=== PATIENT | male | born 1955 | race Caucasian/White ===

== ENCOUNTER → 2020-01-29 10:07 | Outpatient (BNVA) | payer MEDICARE, SELFPAY | PROVIDERS: PCP Nurse Practitioner Family; Referring Provider Licensed Practical Nurse; Visit Provider Anesthesiology Pain Medicine | DX: M54.9 Dorsalgia, unspecified (principal); M51.17 Intervertebral disc disorders with radiculopathy, lumbosacral region; M50.020 Cervical disc disorder with myelopathy, mid-cervical region, unspecified level; Z79.891 Long term (current) use of opiate analgesic | CPT/HCPCS: 99214; 99215 ==

== ENCOUNTER → 2020-02-03 13:58 | Outpatient (BNVA) | payer MEDICARE, SELFPAY | PROVIDERS: PCP Pediatrics; Referring Provider Licensed Practical Nurse; Visit Provider Psychiatry & Neurology Neurology | DX: M54.2 Cervicalgia (principal); M79.601 Pain in right arm; M79.602 Pain in left arm | CPT/HCPCS: 95886; 95910 ==

== ENCOUNTER → 2020-02-24 08:16 | Outpatient (BNVA) | payer MEDICARE, SELFPAY | PROVIDERS: PCP Pediatrics; Visit Provider Psychiatry & Neurology Psychiatry | DX: F33.9 Major depressive disorder, recurrent, unspecified (principal); F06.30 Mood disorder due to known physiological condition, unspecified; G31.84 Mild cognitive impairment of uncertain or unknown etiology; G47.01 Insomnia due to medical condition; E63.9 Nutritional deficiency, unspecified; F17.200 Nicotine dependence, unspecified, uncomplicated | CPT/HCPCS: 90832; 99204 ==

== ENCOUNTER → 2020-03-29 14:17 | Outpatient (BNVA) | payer MEDICARE, SELFPAY | PROVIDERS: PCP Internal Medicine; Visit Provider Anesthesiology Pain Medicine | DX: M51.17 Intervertebral disc disorders with radiculopathy, lumbosacral region (principal); M54.9 Dorsalgia, unspecified; M50.020 Cervical disc disorder with myelopathy, mid-cervical region, unspecified level; F17.210 Nicotine dependence, cigarettes, uncomplicated | CPT/HCPCS: 99213 ==

== ENCOUNTER → 2020-04-22 08:07 | Outpatient (BNVA) | payer MEDICARE, SELFPAY | PROVIDERS: PCP Internal Medicine; Visit Provider Nurse Practitioner | DX: F33.9 Major depressive disorder, recurrent, unspecified (principal); F43.12 Post-traumatic stress disorder, chronic | CPT/HCPCS: 99204 ==

== ENCOUNTER → 2020-06-27 09:39 | Outpatient (BNVA) | payer MEDICARE, SELFPAY | PROVIDERS: PCP Internal Medicine; Visit Provider Nurse Practitioner | DX: F33.9 Major depressive disorder, recurrent, unspecified (principal) | CPT/HCPCS: 99213 ==

== ENCOUNTER → 2020-07-01 08:54 | Outpatient (BNVA) | payer SELFPAY | PROVIDERS: PCP Internal Medicine; Visit Provider Internal Medicine | DX: Z12.11 Encounter for screening for malignant neoplasm of colon (principal) | CPT/HCPCS: 87635 ==

== ENCOUNTER → 2020-07-21 13:52 | Outpatient (BNVA) | payer OTHER, SELFPAY | PROVIDERS: PCP Internal Medicine; Visit Provider Surgery | DX: Z20.828 Contact with and (suspected) exposure to other viral communicable diseases (principal) | CPT/HCPCS: 87635 ==

== ENCOUNTER 2020-07-26 08:09 | Day surgery (SDC) | payer MEDICARE, SELFPAY ==
[2020-07-25 11:33] VITALS: BMI 35.4
--- NOTE | 2020-07-26 08:37 | W.PM.OPSFHP ---
Same Day Surgery H&P Indication for Procedure/HPI DATE OF PROCEDURE: July 26, 2020 CHIEF COMPLAINT/INDICATIONFOR SURGICAL PROCEDURE: Screening colonoscopy PREOP DIAGNOSIS: screen PLANNED PROCEDRUE: Operation Date: 07/26/20 09:30 Proposed Procedures p Colonoscopy 65459 Z12.11(Not Applicable) - Devin Villalba MD Medications/Allergies* Home Medications Medication Instructions Recorded Confirmed Type atorvastatin 40 mg tablet 40 mg PO DAILY 12/08/19 07/25/20 History fenofibrate 54 mg tablet 54 mg PO DAILY 12/08/19 07/25/20 History gabapentin 600 mg tablet 600 mg PO TID 12/08/19 07/25/20 History ibuprofen 800 mg tablet 800 mg PO BID PRN tab 12/08/19 07/25/20 History lisinopril 10 1 tab PO DAILY 12/08/19 07/25/20 History mg-hydrochlorothiazide 12.5 mg tablet metoprolol tartrate 100 mg tablet 100 mg PO DAILY 12/08/19 07/25/20 History tizanidine 4 mg capsule 4 mg PO TID PRN 12/08/19 07/25/20 History diphenhydramine HCl 50 mg PO BEDTIME 07/25/20 07/25/20 History metformin 500 mg PO BID 07/25/20 07/25/20 History tramadol 50 mg PO BID 07/25/20 07/25/20 History venlafaxine 150 mg PO DAILY 07/25/20 07/25/20 History zolpidem 5 mg PO BEDTIME 07/25/20 07/25/20 History Allergies/Adverse Reactions Allergy/AdvReac Type Severity Reaction Status Date / Time No Known Allergies Allergy Verified 06/24/20 14:00 Pertinent History/Comorbid Conditions* Medical History (Updated 02/24/20 @ 16:28 by Marichuy Bryan MD) Cervical disc disorder with myelopathy of mid-cervical region Intervertebral disc disorders with radiculopathy, lumbosacral region Nicotine dependence Surgical History (Updated 01/08/20 @ 13:41 by Sondra Garcia APRN) History of hernia surgery 2x History of tonsillectomy Family History (Updated 01/06/20 @ 15:02 by Manuela Perry LPN) Diabetes Social History Smoking and tobacco status: current every day smoker cigarettes Packs smoked per day: 1 Alcohol intake: current Alcohol intake frequency: holidays/special occasions only Household members: spouse Marital status: Current occupational status: disabled History of recent travel: No Current gender identity: Male Pertinent Exam Findings alert, oriented x 3 and procedure specific exam findings Recommendations Surgery/Procedure today Coding Level of Care Code Acute Data Analytics Architect for Milagros Mello
[2020-07-26 08:38] VITALS: BP 134/96; PULSE 79; RESP 18; TEMP 36.3; O2SAT 98
[2020-07-26] MEDS: sodium chloride 0.9% 1,000 ML 30 ML IV (08:52)
[2020-07-26 08:55] LABS: Glucose Point of Care 133 mg/dL (70-110)
--- NOTE | 2020-07-26 09:18 | ANES.PREANE2 ---
Pre-Anesthetic Assessment Pre-Anesthetic Assessment: Height/Weight: Height 1.75 m Weight 108.862 kg Temp Pulse Resp BP Pulse Ox 97.4 F L 79 18 134/96 98 07/26/20 08:38 07/26/20 08:38 07/26/20 08:38 07/26/20 08:38 07/26/20 08:38 Preop Diagnosis: screen Proposed Procedure: Operation Date: 07/26/20 09:30 Proposed Procedures p Colonoscopy 04431 Z12.11(Not Applicable) - Devin Villalba MD Familial anesthetic complications: No trouble with Was Beta Raghu taken within 24 hours: Yes Last intake: Intake Last Liquid Date 07/25/20 Last Liquid Time 23:00 Last Solid Date 07/24/20 Last Solid Time 18:00 Social: Social History: Tobacco Exam: Pre-Anes Outpt Exam: alert, oriented x 3, clear to auscultation bilaterally and regular rate & rhythm Airway: Cervical ROM: WNL MP: 1 Dentition: Chipped CV/HEM: CV/HEM: HTN Metabolic: Metabolic: Hyperlipidemia Neuropsych: Comments: cognitive impairment Anesthetic Plan: ASA status: 2 Anesthesia: MAC Risk of > 500 ml blood loss (7ml/kg in children): No Other Pertinent Information: poor historian Meds/Allergies Current Medications: Current Medications Generic Name Dose Route Start Last Admin Trade Name Freq PRN Reason Stop Dose Admin Sodium Chloride 1,000 mls @ 30 ml s/hr 07/26/20 08:30 07/26/20 08:52 Sodium Chloride 0.9% IV 07/27/20 08:29 30 mls/hr .Q24H YASH Administration PFSH Anesthesia PFSH: Medical History Cervical disc disorder with myelopathy of mid-cervical region Intervertebral disc disorders with radiculopathy, lumbosacral region Nicotine dependence Surgical History History of hernia surgery 2x History of tonsillectomy Family History Other Diabetes Social History Smoking and tobacco status: current every day smoker cigarettes Packs smoked per day: 1 Alcohol intake: current Alcohol intake frequency: holidays/special occasions only Household members: spouse Marital status: Current occupational status: disabled History of recent travel: No Current gender identity: Male Data Anesthesia Other Labs: Laboratory Results - last 48 hr 07/26/20 08:51 POC Glucose 133 Cardiac Studies: No Data to Display
[2020-07-26 09:52] VITALS: BP 128/90; PULSE 66; RESP 18; TEMP 36.4; O2SAT 96
--- NOTE | 2020-07-26 09:55 | ANE.PACU2 ---
Inpatient post-anesthesia follow up: Airway intact: Yes Vital signs: Temperature 97.5 F Pulse Rate 66 Respiratory Rate 18 Blood Pressure 128/90 Pulse Oximetry 96 Oxygen Delivery Me thod Nasal Cannula Oxygen Flow Rate 3 Fraction of Inspir ed Oxygen Hydration adequate: Yes Nausea and vomiting: No Mental status: Baseline
== END 2020-07-26 10:30 | disposition home or self-care (01) ==
PROVIDERS: PCP Internal Medicine; Visit Provider Surgery
PROC: 0DJD8ZZ Inspection of Lower Intestinal Tract, Via Natural or Artificial Opening Endoscopic (ICD-10-PCS; CPT 45378; principal; 2020-07-26 09:30)
DX: Z12.11 Encounter for screening for malignant neoplasm of colon (principal); K57.30 Diverticulosis of large intestine without perforation or abscess without bleeding; D12.5 Benign neoplasm of sigmoid colon; K64.8 Other hemorrhoids; I10 Essential (primary) hypertension; E78.5 Hyperlipidemia, unspecified; F17.210 Nicotine dependence, cigarettes, uncomplicated
CPT/HCPCS: 12345; 36416; 45385; 82962; 88305; J7030

== ENCOUNTER → 2020-10-14 09:03 | Outpatient (BNVA) | payer MEDICARE, SELFPAY | PROVIDERS: PCP Internal Medicine; Visit Provider Nurse Practitioner | DX: F33.9 Major depressive disorder, recurrent, unspecified (principal) | CPT/HCPCS: 99214 ==

== ENCOUNTER → 2021-02-17 12:42 | Outpatient (BNVA) | payer MEDICARE, SELFPAY | PROVIDERS: PCP Internal Medicine; Visit Provider Nurse Practitioner | DX: F33.9 Major depressive disorder, recurrent, unspecified (principal) | CPT/HCPCS: 99214 ==

== ENCOUNTER 2021-07-22 16:29 | Emergency (ER) | payer MEDICARE, SELFPAY ==
[2021-07-22] VITALS (7 sets, daily range): BP systolic 71–119; BP diastolic 47–69; PULSE 52–58; RESP 16–17; TEMP 36.6; O2SAT 95–98; BMI 27.4
--- NOTE | 2021-07-22 16:36 | XRR_ITS ---
PROCEDURE INFORMATION: Exam: XR Right Tibia and Fibula Exam date and time: 07/22/2021 4:36 PM Age: 66 years old Clinical indication: Injury or trauma; Fall; Blunt trauma; Lower leg; Right; Additional info: Fall/hematoma TECHNIQUE: Imaging protocol: XR Right tibia and fibula. Views: 2 views. COMPARISON: No relevant prior studies available. FINDINGS: Bones/joints: Small osteophytes at multiple compartments in the right knee. There is a fabella in the soft tissues posterior to the knee. No acute fracture. No dislocation. Normal bone mineralization. No joint effusion. Joint spaces are maintained. Soft tissues: No soft tissue swelling. No radiopaque foreign body. XR/XR tibia fibula RT 2V [id number] IMPRESSION: 1. No acute fracture. Followup imaging recommended in 7-14 days if clinical concern for fracture persists. 2. Incidental/nonacute findings are listed in the report.
--- NOTE | 2021-07-22 16:36 | XRR_ITS ---
PROCEDURE INFORMATION: Exam: XR Right Knee Exam date and time: 07/22/2021 4:36 PM Age: 66 years old Clinical indication: Injury or trauma; Fall; Blunt trauma; Knee; Right TECHNIQUE: Imaging protocol: XR Right knee. Views: 3 views. COMPARISON: No relevant prior studies available. FINDINGS: Bones/joints: No acute fracture. No dislocation. Normal bone mineralization. No joint effusion. Joint spaces are maintained. Small osteophytes at the patella, medial tibial plateau, and tibial spines. There is a fabella in the soft tissues posterior to the knee. Soft tissues: No soft tissue swelling. No radiopaque foreign body. XR/XR knee RT 3V* [id number] IMPRESSION: 1. No acute fracture. Followup imaging recommended in 7-14 days if clinical concern for fracture persists. 2. Incidental/nonacute findings are listed in the report.
--- NOTE | 2021-07-22 16:36 | XRR_ITS ---
PROCEDURE INFORMATION: Exam: XR Left Knee Exam date and time: 07/22/2021 4:36 PM Age: 66 years old Clinical indication: Injury or trauma; Fall; Blunt trauma; Knee; Left TECHNIQUE: Imaging protocol: XR Left knee. Views: 3 views. COMPARISON: No relevant prior studies available. FINDINGS: Bones/joints: No acute fracture. No dislocation. Normal bone mineralization. No joint effusion. Joint spaces are maintained. There is a fabella in the soft tissues posterior to the knee. Soft tissues: No soft tissue swelling. No radiopaque foreign body. XR/XR knee LT 3V* [id number] IMPRESSION: No acute fracture. Followup imaging recommended in 7-14 days if clinical concern for fracture persists.
--- NOTE | 2021-07-22 16:36 | XRR_ITS ---
PROCEDURE INFORMATION: Exam: XR Chest Exam date and time: 07/22/2021 4:36 PM Age: 66 years old Clinical indication: Pain; Chest pressure; Additional info: Reduced breath sounds TECHNIQUE: Imaging protocol: XR of the chest. Views: 1 view. COMPARISON: CR Chest 1 [place] [id number] 04/06/2017 8:20 AM FINDINGS: Lungs: Lungs are clear bilaterally. Pleural spaces: No pleural effusion. No pneumothorax. Heart/Mediastinum: The cardiac silhouette and mediastinal contours are unremarkable. Bones/joints: Unremarkable for age. XR/XR chest 1V portable [id number] IMPRESSION: No acute cardiopulmonary process.
--- NOTE | 2021-07-22 16:39 | ECG_ITS ---
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 Measurements Intervals [place] Rate: 55 P: 43 PA: 194 QRS: 29 QRSD: 89 T: 56 QT: 441 QTc: 423 Interpretive Statements SINUS BRADYCARDIA Compared to ECG 04/06/2017 08:23:20 No significant changes Electronically Signed On 07-22-2021 20:57:07 CDT by Bj Giraldo M.D. [email or web address] [email or web address]/store/NU/[id number] f
--- NOTE | 2021-07-22 16:39 | W.ED.GENADLT ---
HPI - General Adult General: Chief complaint: Dizziness Stated complaint: HYPOTENSION Time Seen by Provider: 07/22/21 16:36 History of Present Illness: HPI narrative: The patient is a 66-year-old male with past medical history hypertension, diabetes, who comes to the ER complaining of multiple falls at home today. EMS arrived and documented multiple low blood pressures with systolic in the 70s and 80s. Started fluids and got it up to the 90s. He takes metoprolol and lisinopril/hydrochlorothiazide for his blood pressure. Of note he did get his second Covid shot 2 days ago. He says he is not feeling any effects from the shot and has been eating and drinking well. Denies diarrhea and vomiting as well. Blood pressure on arrival 71/48 and he is asymptomatic in bed. He says he gets lightheaded when he stands at home. Associated symptoms: Deny chest pain, confusion, dyspnea, headache(s), rash or palpitations Review of Systems General: Reports: 10 or more systems reviewed and unremarkable except in HPI and below Const: Denies: fatigue Eyes: Denies: change in vision, blurry vision or eye redness ENMT: Denies: throat pain, swelling of lips/tongue, ear or mastoid pain or nasal congestion Card: Denies: chest pain, palpitations, irregular heart rhythm, edema, dyspnea on exertion or orthopnea Resp: Denies: dyspnea, productive cough or non-productive cough GI: Denies: abdominal pain, diarrhea or GI cramping : Denies: flank pain, urinary frequency or urinary urgency Musc: Denies: neck pain, back pain, extremity pain, joint pain, joint redness, limited range of motion or muscle weakness Skin/Breast: Denies: rash, pruritus, erythema, skin pain or skin tenderness Neuro: Denies: headache(s), numbness in extremities, weakness in extremities, sensory changes, difficulty walking, dizziness, confusion or Slurred speech present Psych: Denies: anxiety or depression Endo: Denies: polyuria All/Imm: Denies: urticaria, throat swelling or tongue swelling PFSH ED PFSH: Medical History (Updated 07/22/21 @ 22:38 by Toni Cunha MD) Cervical disc disorder with myelopathy of mid-cervical region History of colon polyps Intervertebral disc disorders with radiculopathy, lumbosacral region Surgical History (Updated 07/26/20 @ 09:53 by Devin Villalba MD) History of colonoscopy with polypectomy (07/26/20) History of hernia surgery 2x History of tonsillectomy Family History Other Diabetes Social History Smoking and tobacco status: current every day smoker cigarettes Packs smoked per day: 1 Alcohol intake: current Alcohol intake frequency: holidays/special occasions only Household members: spouse Marital status: Current occupational status: disabled History of recent travel: No Current gender identity: Male Physical Exam Const: COMMON NORMALS: no acute distress, average body habitus, patient oriented x3, no limitations, healthy appearing, alert and well nourished GENERAL APPEARANCE: cooperative, comfortable, well kempt and well developed ORIENTATION/CONSCIOUSNESS: Yes awake, Yes oriented to person, Yes oriented to place and Yes oriented to time HENMT: COMMON NORMALS: normocephalic, external ears normal and Normal external nose present HEAD & SCALP: normal to inspection and normocephalic NOSE: Normal external nose present EXTERNAL EAR: Yes external ears normal MOUTH: Normal oral and palatal mucosa present THROAT: posterior oropharynx normal Eye: COMMON NORMALS: Equal, round and reactive pupils present and EOMs intact bilaterally GENERAL EYE: appearance normal, both eyes and all related structures PUPIL: Yes Equal, round and reactive pupils present Neck/C-Spine: COMMON NORMALS: full ROM, no lymphadenopathy, no meningeal signs and no JVD GENERAL: Yes normal visual inspection Lymph: LYMPHATIC: no lymphadenopathy noted Chest: COMMONS NORMALS: normal inspection of the chest and normal palpation of entire chest wall Resp: COMMON NORMALS: normal respiratory effort, No retractions, No use of accessory muscles, clear to auscultation bilaterally and percussion normal EFFORT & INSPECTION: Yes able to speak in complete sentences AUSCULTATION: clear to auscultation bilaterally PERCUSSION: percussion normal Cardio: COMMON NORMALS: no JVD, regular rate, regular rhythm, S1 normal heart sound present, S2 normal heart sound present and Peripheral pulses 2+ throughout RATE: regular rate RHYTHM: regular rhythm HEART SOUNDS: S1 normal heart sound present and S2 normal heart sound present PERIPHERAL PULSES: Peripheral pulses 2+ throughout GI: COMMON NORMALS: Normal to inspection, nondistended, normoactive bowel sounds present, Soft to palpation, non-tender and no masses INSPECTION: Yes normal to inspection PALPATION: Yes Soft to palpation : COMMON NORMALS: Yes no CVA tenderness BLADDER/KIDNEY EXAM: Yes no CVA tenderness Back/Pelvis: COMMON NORMALS: no CVA tenderness, thoracic and lumbar spine normal to inspection, no thoracic nor lumbar tenderness and thoraco-lumbar ROM normal Extremity: COMMON NORMALS: normal to inspection, full ROM, capillary refill normal, no joint enlargement and no pedal edema NARRATIVE EXTREMITY EXAM: Abrasions and contusions to bilateral knees. Right upper crespo proximal tibia there is a hematoma 3 x 5 cm in diameter. No significant bleeding at this time. He says he fell with right knee landing on the screen door track giving the hematoma. NV intact distal to injury. GENERAL: Yes normal exam except as noted Neuro: COMMON NORMALS: patient oriented x3, CN's II-XII intact bilaterally, moves all extremities, no focal motor deficits, no sensory deficits noted and gait normal SENSORIUM/ORIENTATION: Yes alert, Yes oriented to person, Yes oriented to place and Yes oriented to time MENINGEAL SIGNS: Yes no meningeal signs Psych: COMMON NORMALS: mental status grossly normal, Normal thought process present, cooperative, normal affect and speech normal APPEARANCE: Yes well kempt ATTITUDE: Yes calm SPEECH: Yes normal speech THOUGHT PROCESS: Normal thought process present Skin: COMMON NORMALS: no rashes or lesions noted GENERAL SKIN EXAM: no rashes or lesions noted Course Vital Signs: Vital signs: Vital Signs Temperature 97.8 F 07/22/21 16:34 Pulse Rate 52 L 07/22/21 20:39 Respiratory Rate 16 07/22/21 18:46 Blood Pressure 119/69 07/22/21 20:39 Pulse Oximetry 97 07/22/21 18:46 MDM - General Adult MDM Narrative: Medical decision making narrative: The patient came to the ER with significant hypotension. He had his Covid shot 2 days ago and has not been eating or drinking well since then he says. This mixed with his metoprolol and lisinopril/hydrochlorothiazide have likely caused his blood pressure to drop. He was given a liter of fluids by EMS and 1 more by us here in the ED. His blood pressure normalized and his symptoms completely resolved. Normal orthostatic vital signs after IV fluids. He is stable for discharge and requesting discharge. Recommended he follow-up with his primary care physician next week to discuss further, drink lots of fluids, and recheck sodium next week at primary doctor's office. Return to the ER at anytime with worsening symptoms. Also he will check his blood pressure a few times a day at home and write them down and bring that to his primary care physician as well as not take his blood pressure medicines if his blood pressure is low. Lab Data: Labs: Lab Results 07/22/21 07/22/21 07/22/21 16:05 16:05 16:05 WBC 8.1 10^3/uL 10^3/ uL (4.0-10.0) RBC 4.07 10^6/uL L 10 ^6/uL (4.1-5.3) Hgb 13.1 g/dL g/dL (11.7-16.6) Hct 38.2 % L % (42.0-52.0) MCV 93.9 fl fl (80-94) MCH 32.2 pg pg (28.0-34.0) MCHC 34.3 g/dL g/dL (30.0-36.0) RDW 12.7 % % (12.1-15.1) Plt Count 343 10^3/cmm 10^3 /cmm (130-400) MPV 8.8 fL fL (7.4-10.4) Neut % (Auto) 41.3 % % Lymph % (Auto) 42.2 % % Hendry % (Auto) 11.2 % % Eos % (Auto) 3.5 % % Baso % (Auto) 0.9 % % Neut # (Auto) 3.35 10^3/uL 10^3 /uL (1.8-7.7) Lymph # (Auto) 3.4 10^3/uL 10^3/ uL (0.8-4.8) Hendry # (Auto) 0.9 10^3/uL 10^3/ uL (0.2-0.9) Eos # (Auto) 0.3 10^3/uL 10^3/ uL (0.0-0.8) Baso # (Auto) 0.1 10^3/uL 10^3/ uL (0.0-0.1) Nucleated RBC % (a uto) 0 % % Nucleated RBCs # 0.0 /100WBC /100W BC Sodium 129 mmol/L L mmol /L (136-145) Potassium 4.4 mmol/L mmol/L (3.5-5.1) Chloride 96 mmol/L L mmol/ L (98-107) Carbon Dioxide 24 mmol/L mmol/L (22-29) Anion Gap 13.4 (5-19) BUN 7 mg/dL L mg/dL (8-23) Creatinine 0.9 mg/dL mg/dL (0.7-1.2) GFR Calculation 84.7 mL/min L mL/ min (90-130) Glucose 112 mg/dL mg/dL (65-115) Calculated Osmolal ity 267 mOsm/kg L mOs m/kg (285-295) Lactate Calcium 8.9 mg/dL mg/dL (8.5-10.5) Total Bilirubin 0.3 mg/dL mg/dL (0.15-1.2) AST 17 U/L U/L (0-40) ALT 19 U/L U/L (0-41) Alkaline Phosphata se 49 IU/L IU/L (40-130) Troponin T Baselin e 11 ng/L ng/L (0-15) Troponin T 120 Min [place] Troponin T Total Protein 6.1 g/dL L g/dL (6.6-8.7) Albumin 3.8 g/dL g/dL (3.5-5.2) Globulin 2.3 g/dL g/dL (1.3-4.6) TSH 3.08 uIU/mL uIU/m L (0.27-4.20) Urine Color Urine Appearance Urine pH Ur Specific Gravit y Urine Protein Urine Glucose (UA) Urine Ketones Urine Blood Urine Nitrate Urine Bilirubin Urine Urobilinogen Ur Leukocyte Sandie ase 07/22/21 07/22/21 07/22/21 18:18 18:18 19:12 WBC RBC Hgb Hct MCV MCH MCHC RDW Plt Count MPV Neut % (Auto) Lymph % (Auto) Hendry % (Auto) Eos % (Auto) Baso % (Auto) Neut # (Auto) Lymph # (Auto) Hendry # (Auto) Eos # (Auto) Baso # (Auto) Nucleated RBC % (a uto) Nucleated RBCs # Sodium Potassium Chloride Carbon Dioxide Anion Gap BUN Creatinine GFR Calculation Glucose Calculated Osmolal ity Lactate 1.3 mmol/L mmol/L (0.5-2.2) Calcium Total Bilirubin AST ALT Alkaline Phosphata se Troponin T Baselin e Troponin T 120 Min [place] 11.31 ng/L ng/L (0-15) Delta Troponin T 0.31 ABS# ABS# (0-10) Total Protein Albumin Globulin TSH Urine Color Yellow (Yellow) Urine Appearance Clear (CLEAR) Urine pH 7 (5-7) Ur Specific Gravit y 1.000 L (1.005-1.030) Urine Protein Neg (Negative) Urine Glucose (UA) Norm (Normal) Urine Ketones Negative (Negative) Urine Blood Neg (Negative) Urine Nitrate Negative (Negative) Urine Bilirubin Neg (Negative) Urine Urobilinogen Norm mg/dL mg/dL (Negative) Ur Leukocyte Sandie ase Negative (Negative) Discharge Plan Discharge Patient Disposition: Home Clinical Impression: Acute hypotension, Dehydration, Hyponatremia Condition: Stable Prescriptions: No Action gabapentin 600 mg tablet 600 mg PO TID RF: 0 ibuprofen 800 mg tablet 800 mg PO BID PRN (Reason: Pain) RF: 0 tizanidine 4 mg capsule 4 mg PO TID PRN (Reason: Spasms) RF: 0 atorvastatin 40 mg tablet 40 mg PO DAILY RF: 0 metoprolol tartrate 100 mg tablet 100 mg PO DAILY RF: 0 lisinopril-hydrochlorothiazide 10-12.5 mg tablet 1 tab PO DAILY RF: 0 fenofibrate 54 mg tablet 54 mg PO DAILY RF: 0 venlafaxine 150 mg capsule,extended release 24hr 150 mg PO DAILY Qty: 90 RF: 0 metformin 500 mg tablet 500 mg PO BID RF: 0 Ambien 5 mg tablet 5 mg PO BEDTIME RF: 0 Discharge Orders: Discharge ED (Routine); Ordered 07/22/21 Ordered By: Toni Cunha Referrals: Bee Esparza MD [Primary Care Provider] - Discharge Diet: Advance as tolerated Discharge Activity: Resume usual activity Patient Instructions: Dehydration (ED), Hypotension (ED), Opioid Safety Activity Restrictions/Additional Instructions: You have had an episode of lightheadedness likely caused by low blood pressure. This is possibly a side effect from being dehydrated related to getting your Covid second shot 2 days ago. We have given you IV fluids with improvement of your blood pressure and your lightheadedness has resolved. Please use your 's blood pressure cuff to check your blood pressure a few times each day and write it down. If it is low please do not take your blood pressure medications and call your doctor or return to the ER at anytime with worsening or worrisome symptoms. Coding Level of Care Code ED Contract Administration Manager for Milagros Fwd Exam Comprehensive
[2021-07-22 17:30] LABS: Basophils # 0.1 10^3/uL (0.0-0.1); Basophils % 0.9 %; Eosinophils # 0.3 10^3/uL (0.0-0.8); Eosinophils % 3.5 %; Hematocrit 38.2 % (42.0-52.0); Hemoglobin 13.1 g/dL (11.7-16.6); Lymphocytes # 3.4 10^3/uL (0.8-4.8); Lymphocytes % 42.2 %; Mean Corpuscular HGB Conc 34.3 g/dL (30.0-36.0); Mean Corpuscular Hemoglobin 32.2 pg (28.0-34.0); Mean Corpuscular Volume 93.9 fl (80-94); Mean Platelet Volume 8.8 fL (7.4-10.4); Monocytes # 0.9 10^3/uL (0.2-0.9); Monocytes % 11.2 %; Neutrophils # 3.35 10^3/uL (1.8-7.7); Neutrophils % 41.3 %; Nucleated Red Blood Cells % 0 %; Platelet Count 343 10^3/cmm (130-400); Red Blood Count 4.07 10^6/uL (4.1-5.3); Red Cell Distribution Width 12.7 % (12.1-15.1); White Blood Count 8.1 10^3/uL (4.0-10.0)
[2021-07-22 18:03] LABS: Troponin(5th) Baseline 11 ng/L (0-15)
[2021-07-22 18:10] LABS: Alanine Aminotransferase 19 U/L (0-41); Albumin Level 3.8 g/dL (3.5-5.2); Alkaline Phosphatase 49 IU/L (40-130); Anion Gap 13.4 (5-19); Aspartate Amino Transferase 17 U/L (0-40); Blood Urea Nitrogen 7 mg/dL (8-23); Calcium 8.9 mg/dL (8.5-10.5); Carbon Dioxide 24 mmol/L (22-29); Chloride 96 mmol/L (98-107); Globulin 2.3 g/dL (1.3-4.6); Glomerular Filtration Rate 84.7 mL/min (90-130); Glucose 112 mg/dL (65-115); Osmolality Calculated 267 mOsm/kg (285-295); Potassium 4.4 mmol/L (3.5-5.1); Sodium 129 mmol/L (136-145); Thyroid Stimulating Hormone 3.08 uIU/mL (0.27-4.20); Total Bilirubin 0.3 mg/dL (0.15-1.2); Total Protein 6.1 g/dL (6.6-8.7)
[2021-07-22 19:04] LABS: Troponin 5 2HR 11.31 ng/L (0-15); Troponin 5 2HR Delta 0.31 ABS# (0-10)
[2021-07-22 19:06] LABS: Lactate (Lactic Acid level) 1.3 mmol/L (0.5-2.2)
[2021-07-22] MEDS: sodium chloride 0.9% 1,000 ML 999 ML IV (19:19)
[2021-07-22 20:17] LABS: Add Urine Microscopic? NO; Charge for UA Resulting for Rev
[2021-07-22 20:20] LABS: Bilirubin Urine Neg (Negative); Blood Urine Neg (Negative); Glucose Urine UA Norm (Normal); Ketones Urine Negative (Negative); Leukocyte Esterase Urine Negative (Negative); Nitrate Urine Negative (Negative); Protein Urine Neg (Negative); Urine Appearance Clear (CLEAR); Urine Color Yellow (Yellow); Urobilinogen Urine Norm (Negative); pH Urine 7 (5-7)
--- NOTE | 2021-07-22 22:39 | ECG_ITS ---
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 Measurements Intervals [place] Rate: 50 P: 41 [place]: 148 QRS: 48 QRSD: 88 T: 64 QT: 446 QTc: 410 Interpretive Statements SINUS BRADYCARDIA Compared to ECG 07/22/2021 16:47:41 No significant changes Electronically Signed On 07-23-2021 21:50:03 CDT by Bj Giraldo M.D. [id number]
--- NOTE | 2021-07-26 11:29 | DCPLANNER ---
it infrastructure project manager had message to speak with patient about getting established with a primary care. it infrastructure project manager is unable to speak with patient at this time.
== END 2021-07-22 23:04 | disposition home or self-care (01) ==
PROVIDERS: Emergency Provider Family Medicine; PCP Internal Medicine
DX: I95.9 Hypotension, unspecified (principal); E86.0 Dehydration; E87.1 Hypo-osmolality and hyponatremia; Z79.84 Long term (current) use of oral hypoglycemic drugs; F17.210 Nicotine dependence, cigarettes, uncomplicated
CPT/HCPCS: 71045; 73562; 73590; 80053; 81003; 83605; 84443; 84484; 85025; 93005; 96360; 99283; J7030

== ENCOUNTER 2022-03-08 11:38 | Outpatient (CLI) | payer OTHER, SELFPAY ==
--- NOTE | 2022-03-08 12:03 | XR_ITS ---
WS: [id number] CHEST 2 VIEWS HISTORY: WEIGHT LOSS COMPARISON: None available. Lungs: Mild pulmonary hyperexpansion. No mass or nodule. No pneumonia. Normal vasculature. Cardiac size: Normal. Mediastinum/Aorta: Normal mediastinum. Bones: Normal. XR/XR chest 2V* [id number] IMPRESSION: Mild chronic emphysema.
== END 2022-03-08 11:39 | disposition home or self-care (01) ==
PROVIDERS: PCP Nurse Practitioner Family; Visit Provider Nurse Practitioner Family
DX: R63.4 Abnormal weight loss (principal); J43.9 Emphysema, unspecified
CPT/HCPCS: 71046

== ENCOUNTER 2022-04-03 14:08 | Outpatient (CLI) | payer MEDICARE, SELFPAY | END 2022-04-03 14:09 | disposition home or self-care (01) | PROVIDERS: PCP Nurse Practitioner Family; Visit Provider Urology | DX: R97.20 Elevated prostate specific antigen [PSA] (principal) | CPT/HCPCS: 51741; 51798; 81003; 84153; 99203 ==

== ENCOUNTER 2023-11-26 13:42 | Outpatient (CLI) | payer MEDICARE, SELFPAY ==
--- NOTE | 2023-11-26 13:51 | CT_ITS ---
WS: [id number] LDCT LUNG CANCER SCREENING HISTORY: NICOTINE DEPENDENCE,CIGARETTES TECHNIQUE: Axial imaging performed from the apices to 1 cm below the costophrenic angles. Coronal and sagittal reformats are submitted with axial MIP series. All CT scans at [facility] use at least one of these dose optimization techniques: automated exposure control; mA and/or kV adjustment per patient size (includes targeted exams where dose is matched to clinical indication); or iterativ e reconstruction. DLP: 71.81 mGy.cm DIvol: Mean CTDIvol: 1.30 (mGy) COMPARISON: None available. Diagnostic quality: Satisfactory Lungs: No pulmonary mass or nodule. There is a small amount of mucus RIGHT lateral trachea. Heart: Normal size heart with no pericardial effusion.. Other findings: Scattered coronary artery calcifications. Mild atherosclerosis aorta. Benign scattere d lymph nodes. Cholelithiasis. No adrenal mass. IMPRESSION: CT/CT lung screening [id number] LUNG-RADS: 1-Negative FOLLOW UP: 12 Month: Continue annual screening with LDCT OTHER FINDINGS (S MODIFIER): None.
== END 2023-11-26 13:43 | disposition home or self-care (01) ==
LOC: RAD 13:43
PROVIDERS: PCP Nurse Practitioner Family; Visit Provider Family Medicine
DX: Z12.2 Encounter for screening for malignant neoplasm of respiratory organs (principal); F17.210 Nicotine dependence, cigarettes, uncomplicated
CPT/HCPCS: 71271

== ENCOUNTER → 2023-11-27 13:48 | Outpatient (BNVA) | payer MEDICARE, SELFPAY | PROVIDERS: PCP Nurse Practitioner Family; Referring Provider Family Medicine; Visit Provider Surgery | DX: Z12.11 Encounter for screening for malignant neoplasm of colon (principal) | CPT/HCPCS: 99024; 99204 ==

== ENCOUNTER 2023-12-11 15:52 | Emergency (ER) | payer MEDICARE, SELFPAY ==
[2023-12-11] VITALS (21 sets, daily range): BP systolic 85–119; BP diastolic 59–89; PULSE 43–68; RESP 10–19; TEMP 36.3; O2SAT 90–100; BMI 28.1
--- NOTE | 2023-12-11 15:57 | XRR_ITS ---
PROCEDURE INFORMATION: Exam: XR Chest Exam date and time: 12/11/2023 4:06 PM Age: 68 years old Clinical indication: Other: Bradycardia TECHNIQUE: Imaging protocol: Radiologic exam of the chest. Views: 1 view. COMPARISON: CT lung screening [id number] 11/26/2023 2:38 PM FINDINGS: Lungs: No focal consolidation. Pleural spaces: No evidence of pneumothorax. No evidence of pleural effusion. Heart/Mediastinum: Cardiomediastinal silhouette is within normal limits. Bones/joints: No evidence of acute osseous abnormality. XR/XR chest 1V portable [id number] IMPRESSION: 1. No acute cardiopulmonary abnormality.
--- NOTE | 2023-12-11 15:59 | ECG_ITS ---
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 Measurements Intervals [place] Rate: 42 P: 28 MT: 184 QRS: 26 QRSD: 106 T: 38 QT: 473 QTc: 397 Interpretive Statements SINUS BRADYCARDIA Compared to ECG 12/11/2023 16:08:55 Ventricular premature complex(es) no longer present Electronically Signed On 12-12-2023 12:05:11 MEDIA INTERN by Bj Giraldo M.D. [id number]
--- NOTE | 2023-12-11 16:00 | W.ED.SYNCOPE ---
HPI - Syncope General: Chief Complaint: Syncope Stated Complaint: Syncope Time Seen by Provider: 12/11/23 15:55 History of Present Illness: Patient presents to the ER with complaints of 1 episode of syncope. When EMS arrived there he was bradycardic and hypotensive. Patient is on at least 2 blood pressure medicines. Patient denies any chest pain shortness of breath. Patient said he got lightheaded and dizzy. Patient has done this in the past he claims last time was about 4 years ago. Patient denies all complaints at this time. On arrival patient's heart rate was approximately 50 beats a minute and blood pressure 85/59. 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 Mother , at age 81 CAD (coronary artery disease) Other Diabetes Social History Smoking and tobacco/nicotine status: current every day tobacco/nicotine user cigarettes Packs smoked per day: 1 Alcohol intake: never Substance/Drug Use: never Household members: spouse Marital status: Current occupational status: disabled Current gender identity: Male Physical Exam Const: COMMON NORMALS: no acute distress, average body habitus, patient oriented x3, no limitations, healthy appearing, alert and well nourished HENMT: COMMON NORMALS: normocephalic, atraumatic, hearing grossly normal bilaterally, external ears normal, Normal external nose present, moist oral mucous membranes and oropharynx normal HEAD & SCALP: normocephalic and atraumatic NOSE: Normal external nose present EXTERNAL EAR: Yes external ears normal Neck/C-Spine: COMMON NORMALS: full ROM, no lymphadenopathy, supple, no meningeal signs, no JVD and Thyroid normal THYROID: Thyroid normal Chest: COMMONS NORMALS: normal inspection of the chest and normal palpation of entire chest wall Resp: COMMON NORMALS: normal respiratory effort, No retractions, No use of accessory muscles and clear to auscultation bilaterally AUSCULTATION: clear to auscultation bilaterally Cardio: COMMON NORMALS: no JVD, regular rhythm, S1 normal heart sound present, S2 normal heart sound present, No gallops present (Cardio), No murmurs present (Cardio) and No rub (Cardio); negative for regular rate (Mildly bradycardic) RATE: abnormal rate (Mildly bradycardic) RHYTHM: regular rhythm HEART SOUNDS: S1 normal heart sound present and S2 normal heart sound present GI: COMMON NORMALS: Normal to inspection, nondistended, normoactive bowel sounds present, Soft to palpation, non-tender, No hepatosplenomegaly present and no masses PALPATION: Yes Soft to palpation and Yes No hepatosplenomegaly present Neuro: COMMON NORMALS: patient oriented x3 SENSORIUM/ORIENTATION: Yes alert MENINGEAL SIGNS: Yes no meningeal signs Course Vital Signs: Vital signs: Vital Signs Temperature 97.4 F L 12/11/23 15:57 Pulse Rate 46 L 12/11/23 20:02 Respiratory Rate 18 12/11/23 20:02 Blood Pressure 119/66 12/11/23 20:02 Pulse Oximetry 100 12/11/23 20:02 Oxygen Delivery Me thod Room Air 12/11/23 16:37 MDM - Syncope Medical Decision Making Patient presented with bradycardia and hypotension. Lab work was obtained including serial EKGs serial enzymes and chest x-ray. All of which was benign except patient's BUN/creatinine was elevated. BUN was 10 and creatinine was 1.8. I feel this may be allowing the medication that the patient is on including lisinopril and metoprolol to stay in the system too long and therefore causes bradycardia and hypotension. We will decrease his metoprolol and have him follow-up with his PCP. Differential Diagnosis Unlikely syncope due to orthostatic hypotension, vasovagal syncope, complete atrioventricular block, subarachnoid hemorrhage, pulmonary embolism or dehydration Medical Records I reviewed the patient's medical records. Lab Data I reviewed the patient's lab results. 12/11/23 16:00 12/11/23 16:00 Radiology Impressions Chest X-Ray 12/11/23 15:57 IMPRESSION: 1. No acute cardiopulmonary abnormality. Laboratory Results WBC 5.13 10^3/uL (3.29-11.43) 12/11/23 16:00 RBC 4.33 10^6/uL (3.85-5.65) 12/11/23 16:00 Hgb 13.90 g/dL (11.27-16.99) 12/11/23 16:00 Hct 41.9 % (37-53) 12/11/23 16:00 MCV 96.8 fl (82-101) 12/11/23 16:00 MCH 32.1 pg (27-33) 12/11/23 16:00 MCHC 33.2 g/dL (30-55) 12/11/23 16:00 RDW 13.3 % (12.1-15.1) 12/11/23 16:00 Plt Count 220 10^3/cmm (157-399) 12/11/23 16:00 MPV 9.3 fL (7.4-10.4) 12/11/23 16:00 Neut % (Auto) 35.7 % 12/11/23 16:00 Lymph % (Auto) 48.5 % 12/11/23 16:00 [place] % (Auto) 11.1 % 12/11/23 16:00 Eos % (Auto) 3.3 % 12/11/23 16:00 Baso % (Auto) 1.0 % 12/11/23 16:00 Neut # (Auto) 1.83 10^3/uL (1.8-7.7) 12/11/23 16:00 Lymph # (Auto) 2.5 10^3/uL (0.8-4.8) 12/11/23 16:00 [place] # (Auto) 0.6 10^3/uL (0.2-0.9) 12/11/23 16:00 Eos # (Auto) 0.2 10^3/uL (0.0-0.8) 12/11/23 16:00 Baso # (Auto) 0.1 10^3/uL (0.0-0.1) 12/11/23 16:00 Nucleated RBC % (auto) 0 % 12/11/23 16:00 Nucleated RBCs # 0.0 /100WBC 12/11/23 16:00 Sodium 137 mmol/L (136-145) 12/11/23 16:00 Potassium 3.9 mmol/L (3.5-5.1) 12/11/23 16:00 Chloride 100 mmol/L (98-107) 12/11/23 16:00 Carbon Dioxide 24 mmol/L (22-29) 12/11/23 16:00 Anion Gap 16.9 (5-19) 12/11/23 16:00 BUN 10 mg/dL (8-23) 12/11/23 16:00 Creatinine 1.8 mg/dL (0.7-1.2) H 12/11/23 16:00 GFR Calculation 37.8 mL/min (90-130) L 12/11/23 16:00 Glucose 125 mg/dL (65-115) H 12/11/23 16:00 Calculated Osmolality 285 mOsm/kg (285-295) 12/11/23 16:00 Calcium 9.2 mg/dL (8.5-10.5) 12/11/23 16:00 Magnesium 1.9 mg/dL (1.7-2.3) 12/11/23 16:00 Total Bilirubin 0.3 mg/dL (0.15-1.2) 12/11/23 16:00 AST 19 U/L (0-40) 12/11/23 16:00 ALT 18 U/L (0-41) 12/11/23 16:00 Alkaline Phosphatase 43 U/L (40-130) 12/11/23 16:00 Troponin T Baseline 20 ng/L (0-15) H 12/11/23 16:00 Troponin T 120 Minute 14.62 ng/L (0-15) 12/11/23 18:26 Delta Troponin T -5.38 ABS# (0-10) L 12/11/23 18:26 Total Protein 6.8 g/dL (6.6-8.7) 12/11/23 16:00 Albumin 4.2 g/dL (3.5-5.2) 12/11/23 16:00 Globulin 2.6 g/dL (1.3-4.6) 12/11/23 16:00 TSH 1.41 uIU/mL (0.27-4.20) 12/11/23 16:00 Urine Color Yellow (Yellow) 12/11/23 19:24 Urine Appearance Clear (CLEAR) 12/11/23 19:24 Urine pH 5 (5-7) 12/11/23 19:24 Ur Specific [place] 1.010 (1.005-1.030) 12/11/23 19:24 Urine Protein Neg (Negative) 12/11/23 19:24 Urine Glucose (UA) Norm (Normal) 12/11/23 19:24 Urine Ketones Negative (Negative) 12/11/23 19:24 Urine Blood Neg (Negative) 12/11/23 19:24 Urine Nitrate Negative (Negative) 12/11/23 19:24 Urine Bilirubin Neg (Negative) 12/11/23 19:24 Urine Urobilinogen Norm mg/dL (Negative) 12/11/23 19:24 Ur Leukocyte Esterase Negative (Negative) 12/11/23 19:24 All radiology interpretation(s) finalized by discharge EKG Data EKG 1: I personally reviewed and interpreted this EKG as follows: EKG interpretation date: 12/11/23 EKG interpretation time: 16:08 Prior EKG tracings: available for review Interpretation: Ventricular rate 53 bpm, SD interval 178, QRS duration 106, QTc of 435, sinus bradycardia with occasional PVC EKG 2: I personally reviewed and interpreted this EKG as follows: EKG interpretation date: 12/11/23 EKG interpretation time: 18:04 Prior EKG tracings: available for review Interpretation: Ventricular rate 42 bpm, SD interval 184, QRS duration 106, QTc of 414, sinus bradycardia, Discharge Plan Discharge Patient Disposition: Home Clinical Impression: Drug-induced hypotension, Bradycardia, drug induced Condition: Stable Prescriptions: New metoprolol tartrate 50 mg tablet 50 mg PO DAILY Qty: 30 0RF Discontinued metoprolol tartrate 100 mg tablet 100 mg PO DAILY No Action gabapentin 600 mg tablet 600 mg PO TID ibuprofen 800 mg tablet 800 mg PO BID PRN (Reason: Pain) fenofibrate 54 mg tablet 54 mg PO DAILY lisinopril 20 mg tablet 20 mg PO DAILY tizanidine 4 mg tablet 4 mg PO TID PRN (Reason: Spasms) metformin 500 mg tablet 500 mg PO BID atorvastatin 20 mg tablet 20 mg PO DAILY Discharge Orders: Discharge ED (Routine); Ordered 12/11/23 Ordered By: Tyrell Ruiz Referrals: Dmitriy Farr NP [Primary Care Provider] - 1 week Patient Instructions: Hypotension (ED), Bradycardia (ED) Activity Restrictions/Additional Instructions: Your workup in ER showed your kidneys are functioning properly. They are functioning less than normal. This may be lowering your blood pressure medicine to build up in your system and therefore caused her heart rate and your blood pressure to go too low. Please decrease your metoprolol 100 mg to 50 mg 1 tablet daily. Please follow-up with your family practice physician within the next 7 days for further evaluation and treatment. Coding Level of Care Code ED Helicopter Pilot Instructor for Milagros Mello
[2023-12-11] MEDS: sodium chloride 0.9% 1,000 ML 999 ML IV ×2 (16:15→16:35)
[2023-12-11 16:19] LABS: Basophils # 0.1 10^3/uL (0.0-0.1); Eosinophils # 0.2 10^3/uL (0.0-0.8); Eosinophils % 3.3 %; Hematocrit 41.9 % (37-53); Lymphocytes # 2.5 10^3/uL (0.8-4.8); Lymphocytes % 48.5 %; Mean Corpuscular HGB Conc 33.2 g/dL (30-55); Mean Corpuscular Hemoglobin 32.1 pg (27-33); Mean Corpuscular Volume 96.8 fl (82-101); Mean Platelet Volume 9.3 fL (7.4-10.4); Monocytes # 0.6 10^3/uL (0.2-0.9); Monocytes % 11.1 %; Neutrophils # 1.83 10^3/uL (1.8-7.7); Neutrophils % 35.7 %; Nucleated Red Blood Cells % 0 %; Platelet Count 220 10^3/cmm (157-399); Red Blood Count 4.33 10^6/uL (3.85-5.65); Red Cell Distribution Width 13.3 % (12.1-15.1); White Blood Count 5.13 10^3/uL (3.29-11.43)
[2023-12-11 16:36] LABS: Troponin(5th) Baseline 20 ng/L (0-15)
[2023-12-11 16:56] LABS: Alanine Aminotransferase 18 U/L (0-41); Albumin Level 4.2 g/dL (3.5-5.2); Alkaline Phosphatase 43 U/L (40-130); Anion Gap 16.9 (5-19); Aspartate Amino Transferase 19 U/L (0-40); Blood Urea Nitrogen 10 mg/dL (8-23); Calcium 9.2 mg/dL (8.5-10.5); Carbon Dioxide 24 mmol/L (22-29); Chloride 100 mmol/L (98-107); Globulin 2.6 g/dL (1.3-4.6); Glomerular Filtration Rate 37.8 mL/min (90-130); Glucose 125 mg/dL (65-115); Magnesium 1.9 mg/dL (1.7-2.3); Osmolality Calculated 285 mOsm/kg (285-295); Potassium 3.9 mmol/L (3.5-5.1); Sodium 137 mmol/L (136-145); Thyroid Stimulating Hormone 1.41 uIU/mL (0.27-4.20); Total Bilirubin 0.3 mg/dL (0.15-1.2); Total Protein 6.8 g/dL (6.6-8.7)
--- NOTE | 2023-12-11 17:59 | ECG_ITS ---
[facility] Test Date: 2023-12-11 Pat Name: Kvng Soto Department: Room: Gender: Male Patient Companion: : 1955 Requested By: Tyrell Ruiz Order Number: [id number] Polina MD: Bj Giraldo M.D. Measurements Intervals [place] Rate: 53 P: 42 VT: 178 QRS: 22 QRSD: 106 T: 30 QT: 452 QTc: 427 Interpretive Statements SINUS BRADYCARDIA WITH OCCASIONAL VENTRICULAR PREMATURE COMPLEXES Compared to ECG 07/22/2021 21:54:35 Ventricular premature complex(es) now present Electronically Signed On 12-12-2023 12:06:09 QUALITY COORDINATOR by Bj Giraldo M.D. [id number]
[2023-12-11 18:59] LABS: Troponin 5 2HR 14.62 ng/L (0-15)
[2023-12-11 19:03] LABS: Troponin 5 2HR Delta -5.38 ABS# (0-10)
--- NOTE | 2023-12-11 19:14 | PC.NURSE ---
bladder scan shows 424ml, pt has attempted multiple times to urinate, has no urge
[2023-12-11 19:34] LABS: Add Urine Microscopic? NO; Charge for UA Resulting for Rev
[2023-12-11 19:46] LABS: Bilirubin Urine Neg (Negative); Blood Urine Neg (Negative); Glucose Urine UA Norm (Normal); Ketones Urine Negative (Negative); Leukocyte Esterase Urine Negative (Negative); Nitrate Urine Negative (Negative); Protein Urine Neg (Negative); Urine Appearance Clear (CLEAR); Urine Color Yellow (Yellow); Urobilinogen Urine Norm (Negative); pH Urine 5 (5-7)
== END 2023-12-11 20:04 | disposition home or self-care (01) ==
PROVIDERS: Emergency Provider Emergency Medicine; PCP Nurse Practitioner Family
DX: I95.2 Hypotension due to drugs (principal); T44.7X5A Adverse effect of beta-adrenoreceptor antagonists, initial encounter; R00.1 Bradycardia, unspecified; Z79.84 Long term (current) use of oral hypoglycemic drugs; F17.210 Nicotine dependence, cigarettes, uncomplicated
CPT/HCPCS: 36415; 71045; 80053; 81003; 83735; 84443; 84484; 85025; 93005; 96360; 96361; 99285; J7030

== ENCOUNTER 2025-05-12 15:41 | Emergency (ER) | payer MEDICARE, SELFPAY ==
[2025-05-12] VITALS (11 sets, daily range): BP systolic 81–154; BP diastolic 50–92; PULSE 54–65; RESP 12–17; TEMP 36.3; O2SAT 93–100; BMI 21.9
--- NOTE | 2025-05-12 15:44 | ECG_ITS ---
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 Measurements Intervals [place] Rate: 67 P: 52 MD: 180 QRS: 27 QRSD: 93 T: 41 QT: 398 QTc: 422 Interpretive Statements SINUS RHYTHM Compared to ECG 12/11/2023 18:04:10 Sinus bradycardia no longer present Electronically Signed On 05-12-2025 16:39:59 CDT by Dustin Cardoso M.D. [id number] [id number]
--- OUTSIDE RECORDS SUMMARY | 2025-05-12 15:48 | XMS_ITS | Encounter Summary ---
Author Organization [employer] Address 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
--- OUTSIDE RECORDS SUMMARY | 2025-05-12 15:48 | XMS_ITS | Encounter Summary ---
Author Organization [employer] Address 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
--- OUTSIDE RECORDS SUMMARY | 2025-05-12 15:48 | XMS_ITS | Encounter Summary ---
Author Organization [facility] Address 

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
--- OUTSIDE RECORDS SUMMARY | 2025-05-12 15:49 | XMS_ITS | Patient Health Record ---
Author Organization [facility] Address [address] [place], [place] [id number] Care Team Providers Care Aircraft Captain Name Role Phone Dmitriy Ariza Primary Care Provider Ángel Reese MD, Bernardo Unavailable [phone] Allergies Allergen (clinical drug ingredient) Drug/Non Drug Allergy documented on EMR Reaction Allergy Type Onset Date Status Hayfever, pollen (uncoded) Unknown Allergy Active Reason For Referral No Information Medications Medication SIG (Take, Route, Frequency, Duration) Notes Start Date End Date Status venlafaxine 150 mg 1 cap orally once a day Active atorvastatin 20 mg 1 tab orally once a day Active zolpidem 5 mg 1 tab orally at bedt erick, as needed for sleep Active tiZANidine 4 mg 1 tab po orally TID prn spasm Active calcipotriene topical 0.005% 1 amaury applied topically as directed Unknown gabapentin 600 mg 1 tab po orally TID Active fenofibrate 54 mg 1 tab once a day Active ibuprofen 800 mg 1 tab po orally BID prn pain; take with food Active hydrochlorothiazide-lisinop ril 12.5 mg-10 mg 1 tab once a day Active Metoprolol Tartrate 100 mg 1 tab once a day Active metFORMIN 500 mg 1 tab orally 2 times a day Active Social History Tobacco Use: Social History Observation Description Date Details (start date - stop date) Current Smoker 10/28/2008 - NA alcohol Question Answer Notes Did you have a drink contain ing alcohol in the past year? Yes Points 3 Interpretation Negative How often did you have a dri nk containing alcohol in the past year? Monthly or less (1 point) How many drinks did you have on a typical day when you were drinking in the past year? 1 or 2 (0 points) How often did you have six o r more drinks on one occasion in the past year? Monthly (2 points) Tobacco use: Question Answer Notes : current smoker Are you interested in quitting? Ready to quit How many cigarettes a day do you smoke? 11-20 How often do you smoke cigarettes? every day How soon after you wake up do you smoke your fir st cigarette? 6-30 min When did you start smoking? 10/28/2008 Problems Problem Type SNOMED Code ICD Code Onset Dates Problem Status W/U Status Risk Notes Problem Low back pain (164481172) Low back pain (M54.5) Active confirmed Problem Lumbosacral spondylosis without myelopathy (20811267) Spondylosis without myelopathy or radiculopathy, lumbar region (M47.816) Active confirmed Problem Anxiety disorder (768694229) Other specified anxiety disorders (F41.8) Active confirmed Problem Hypersomnia (44681398) Hypersomnia, unspecified (G47.10) Active confirmed Problem Sleep disorder (75597382) Other sleep disorders (G47.8) Active confirmed Problem Radiculopathy due to lumbar intervertebral disc disorder (095630114030264) Intervertebral disc disorders with radiculopathy, lumbar region (M51.16) Active confirmed Problem Long-term current use of drug therapy (266042129) Other chcf (current) drug therapy (Z79.899) Active confirmed Problem Myalgia (38039949) Myalgia of auxiliary muscles, head and neck (M79.12) Active confirmed Problem Muscle pain (95886170) Myalgia, other site (M79.18) Active confirmed Plan Of Treatment No Information Medical (General) History Medical History History ICD Code Intervertebral disc disorder with radicu lopathy of lumbosacral region Cervical disc disorder with myelopathy o f mid-cervical region Cervical stenosis of spine Diabetes mellitus Vertigo Hypertension Hyperlipidemia Surgical History Surgery Date(Month/Year) Tonsillectomy Hernia repair x 2, 1976, 1986
--- NOTE | 2025-05-12 16:00 | W.ED.ARRPALP ---
HPI - Arrhythmia/Palpitations General: Chief Complaint: Arrhythmia/Palpitations Stated Complaint: John Paul Time Seen by Provider: 05/12/25 15:44 History of Present Illness: 69-year-old man with a history of diabetes, hypertension, hyperlipidemia who presents to the emergency room by ambulance after having a syncopal episode. He was walking into his doctor's office and apparently became lightheaded. When EMS arrived there he was bradycardic and hypotensive. He has resolved some with some fluids and atropine. His heart rate is in the 60s on presentation his blood pressure still a bit soft. He says he was feeling fine before. He had a similar episode about a year ago. He said nothing came of that at the time. No chest pain. No altered mental status. No focal motor deficits. No abdominal pain. No vomiting. Related Data Home Medications ?Medication ?Instructions ?Recorded ?Confirmed fenofibrate 54 mg tablet 54 mg PO DAILY 12/08/19 05/12/25 gabapentin 600 mg tablet 600 mg PO TID 12/08/19 05/12/25 ibuprofen 800 mg tablet 800 mg PO BID PRN Pain 12/08/19 05/12/25 metformin 500 mg tablet 500 mg PO BID 07/25/20 05/12/25 lisinopril 20 mg tablet 20 mg PO DAILY 08/17/22 05/12/25 tizanidine 4 mg tablet 4 mg PO TID PRN Spasms 11/27/23 05/12/25 atorvastatin 20 mg tablet 20 mg PO DAILY 12/11/23 05/12/25 metoprolol succinate 100 mg 100 mg PO DAILY 05/12/25 05/12/25 tablet,extended release 24 hr Allergies Allergy/AdvReac Type Severity Reaction Status Date / Time No Known Allergies Allergy Verified 12/11/23 16:09 Review of Systems Narrative: Constitutional symptoms: Negative except as documented in HPI. Skin symptoms: Negative except as documented in HPI. Eye symptoms: Negative except as documented in HPI. ENMT symptoms: Negative except as documented in HPI. Respiratory symptoms: Negative except as documented in HPI. Cardiovascular symptoms: Negative except as documented in HPI. Gastrointestinal symptoms: Negative except as documented in HPI. Genitourinary symptoms: Negative except as documented in HPI. Musculoskeletal symptoms: Negative except as documented in HPI. Neurologic symptoms: Negative except as documented in HPI. Psychiatric symptoms: Negative except as documented in HPI. Endocrine symptoms: Negative except as documented in HPI. PFSH ED PFSH: Medical History (Updated 05/12/25 @ 19:18 by Jackie Salazar MD) Mild episode of recurrent major depressive disorder Mild cognitive impairment of uncertain or unknown etiology Nicotine dependence, cigarettes, uncomplicated Abnormal PSA History of colon polyps Cervical disc disorder with myelopathy of mid-cervical region Intervertebral disc disorders with radiculopathy, lumbosacral region Surgical History History of colonoscopy with polypectomy (07/26/20) History of tonsillectomy History of hernia surgery 2x Family History Father No problems noted. Mother , at age 81 CAD (coronary artery disease) Other Diabetes Social History Smoking and tobacco/nicotine status: current every day tobacco/nicotine user cigarettes Packs smoked per day: 1 Alcohol intake: never Substance/Drug Use: never Household members: spouse Marital status: Current occupational status: disabled Current gender identity: Male Physical Exam Narrative: EXAM NARRATIVE: General: Alert, no acute distress. Skin: Warm, dry. Head: Normocephalic, atraumatic. Neck: Supple, trachea midline. Eye: Extraocular movements are intact. Ears, nose, mouth and throat: mucosa moist. Cardiovascular: Regular, Normal peripheral perfusion. Respiratory: Lungs are clear to auscultation, respirations are non-labored, breath sounds are equal, Symmetrical chest wall expansion. Gastrointestinal: Soft, Nontender, Non distended Musculoskeletal: Normal ROM, no deformity. Neurological: Alert and oriented, No focal neurological deficit observed. Psychiatric: Cooperative, appropriate mood & affect. Course Vital Signs: Vital signs: Vital Signs Temperature 97.4 F L 05/12/25 15:41 Pulse Rate 60 05/12/25 19:15 Respiratory Rate 15 05/12/25 16:30 Blood Pressure 154/80 05/12/25 19:14 Pulse Oximetry 100 05/12/25 19:15 Oxygen Delivery Me thod Room Air 05/12/25 19:15 Oxygen Flow Rate 2 05/12/25 18:00 MDM - Arrhythmia/Palpitations Medical Decision Making Medical decision making: Differential diagnosis including but not limited to and based on the above HPI, review of systems and physical exam in this patient with syncope: Vasovagal, orthostatics hypotension, cardiac dysrhythmia, myocardial infarction, infection and hypotension, Orders placed to evaluate differential diagnosis based on the above differential, HPI and physical exam EKG: Time 1544. Rate 67. Normal sinus rhythm, No ST-T changes, no ectopy, normal [place] & QRS intervals, This was reviewed and interpreted by myself the ER physician at 1549 Chest x-ray: No acute process. No infiltrate. No pneumothorax. This was reviewed and interpreted by myself the emergency room physician. I also reviewed the radiology report. Lab Review: Laboratory results were reviewed and interpreted by myself the emergency room physician. No leukocytosis. No anemia. Mild renal insufficiency which is chronic. Initial troponin was 15. Repeat troponin went up 45 points to 59. Consultation: I spoke with Dr. Mondragon who is on-call for cardiology. He recommends admission and starting heparin drip. I ordered heparin Plavix and aspirin. I reviewed the patient's medical record. Reexamination: I have gone back to the patient's room multiple times. He has continued to say he does not want to stay and will go home. I discussed with him that I think he is had heart attack and he could very well . He says he is not going to and he is going home to feed his dogs. I went back to his room at least 3 times trying to talk him into staying. Patient left AMA Lab Data 05/12/25 15:48 05/12/25 15:48 Radiology Impressions Chest X-Ray 05/12/25 16:03 IMPRESSION: No acute findings. Laboratory Results WBC 6.59 10^3/uL (3.29-11.43) 05/12/25 15:48 RBC 3.38 10^6/uL (3.85-5.65) L 05/12/25 15:48 Hgb 10.90 g/dL (11.27-16.99) L 05/12/25 15:48 Hct 32.7 % (37-53) L 05/12/25 15:48 MCV 96.7 fl (82-101) 05/12/25 15:48 MCH 32.2 pg (27-33) 05/12/25 15:48 MCHC 33.3 g/dL (30-55) 05/12/25 15:48 RDW 13.6 % (12.1-15.1) 05/12/25 15:48 Plt Count 225 10^3/cmm (157-399) 05/12/25 15:48 MPV 8.9 fL (7.4-10.4) 05/12/25 15:48 Neut % (Auto) 39.6 % 05/12/25 15:48 Lymph % (Auto) 43.7 % 05/12/25 15:48 Crawford % (Auto) 11.5 % 05/12/25 15:48 Eos % (Auto) 3.8 % 05/12/25 15:48 Baso % (Auto) 0.9 % 05/12/25 15:48 Neut # (Auto) 2.61 10^3/uL (1.8-7.7) 05/12/25 15:48 Lymph # (Auto) 2.9 10^3/uL (0.8-4.8) 05/12/25 15:48 Crawford # (Auto) 0.8 10^3/uL (0.2-0.9) 05/12/25 15:48 Eos # (Auto) 0.3 10^3/uL (0.0-0.8) 05/12/25 15:48 Baso # (Auto) 0.1 10^3/uL (0.0-0.1) 05/12/25 15:48 Nucleated RBC % (auto) 0 % 05/12/25 15:48 Nucleated RBCs # 0.0 /100WBC 05/12/25 15:48 Sodium 133 mmol/L (136-145) L 05/12/25 15:48 Potassium 3.8 mmol/L (3.5-5.1) 05/12/25 15:48 Chloride 98 mmol/L (98-107) 05/12/25 15:48 Carbon Dioxide 22 mmol/L (22-29) 05/12/25 15:48 Anion Gap 16.8 (5-19) 05/12/25 15:48 BUN 10 mg/dL (8-23) 05/12/25 15:48 Creatinine 1.5 mg/dL (0.7-1.2) H 05/12/25 15:48 GFR Calculation 46.5 mL/min (90-130) L 05/12/25 15:48 Glucose 89 mg/dL (65-115) 05/12/25 15:48 Calculated Osmolality 275 mOsm/kg (285-295) L 05/12/25 15:48 Calcium 8.6 mg/dL (8.5-10.5) 05/12/25 15:48 Total Bilirubin 0.4 mg/dL (0.15-1.2) 05/12/25 15:48 AST 14 U/L (0-40) 05/12/25 15:48 ALT 9 U/L (0-41) 05/12/25 15:48 Alkaline Phosphatase 31 U/L (40-130) L 05/12/25 15:48 Troponin T Baseline 15 ng/L (0-15) 05/12/25 15:48 Troponin T 120 Minute 58.59 ng/L (0-15) H 05/12/25 18:37 Delta Troponin T 43.59 ABS# (0-10) H* 05/12/25 18:37 NT-Pro-B Natriuret Pep 136 pg/mL (0-125) H 05/12/25 15:48 Total Protein 5.4 g/dL (6.6-8.7) L 05/12/25 15:48 Albumin 3.6 g/dL (3.5-5.2) 05/12/25 15:48 Globulin 1.8 g/dL (1.3-4.6) 05/12/25 15:48 TSH 1.57 uIU/mL (0.27-4.20) 05/12/25 15:48 All radiology interpretation(s) finalized by discharge Discharge Plan Discharge Patient Disposition: Left Against Medical Advice Clinical Impression: Syncope, Bradycardia, Non-ST elevated myocardial infarction Condition: Stable Prescriptions: No Action gabapentin 600 mg tablet 600 mg PO TID ibuprofen 800 mg tablet 800 mg PO BID PRN (Reason: Pain) fenofibrate 54 mg tablet 54 mg PO DAILY lisinopril 20 mg tablet 20 mg PO DAILY tizanidine 4 mg tablet 4 mg PO TID PRN (Reason: Spasms) metformin 500 mg tablet 500 mg PO BID metoprolol succinate 100 mg tablet extended release 24 hr 100 mg PO DAILY atorvastatin 20 mg tablet 20 mg PO DAILY Referrals: Dmitriy Farr NP [Primary Care Provider, Nurse Practitioner] Patient Instructions: Syncope (ED), Opioid Safety, Pain Management, Patient Portal & Sweetie Instructions Activity Restrictions/Additional Instructions: Thank you for choosing [facility] for your healthcare needs today. You have been screened and evaluated and felt safe for discharge. Health conditions do change or evolve sometimes and as such it is important that you follow up with your Primary Doctor to be re checked, 3-5 days is a general good time frame for follow up. You are always welcome to return to the ED for re assessment if your symptoms are worsening or you have new concerns Print Language: Croatian Coding Level of Care Code ED Agriculturist for Milagros Mello
--- NOTE | 2025-05-12 16:02 | PC.NURSE ---
Addendum entered by Moriah Mendez LPN 05/12/25 16:05: Dr. Salazar notified of placing pt on oxygen. Original Note: pt when resting with eyes closed O2 on room air drops to 84%, placed on 2L NC.
--- NOTE | 2025-05-12 16:03 | XRR_ITS ---
PROCEDURE INFORMATION: Exam: XR Chest Exam date and time: 05/12/2025 4:09 PM Age: 69 years old Clinical indication: Other: Syncope TECHNIQUE: Imaging protocol: Radiologic exam of the chest. Views: 1 view. COMPARISON: CR XR chest 1V portable [id number] 12/11/2023 4:06 PM FINDINGS: Lungs: Unremarkable. No consolidation or mass. Pleural spaces: Unremarkable. No pleural effusion. No pneumothorax. Heart/Mediastinum: Unremarkable. No cardiomegaly. Bones/joints: Unremarkable. XR/XR chest 1V portable [id number] IMPRESSION: No acute findings.
[2025-05-12 16:07] LABS: Hematocrit 32.7 % (37-53); Hemoglobin 10.90 g/dL (11.27-16.99); Mean Corpuscular HGB Conc 33.3 g/dL (30-55); Mean Corpuscular Hemoglobin 32.2 pg (27-33); Mean Corpuscular Volume 96.7 fl (82-101); Nucleated Red Blood Cells % 0 %; Platelet Count 225 10^3/cmm (157-399); Red Blood Count 3.38 10^6/uL (3.85-5.65); White Blood Count 6.59 10^3/uL (3.29-11.43)
[2025-05-12 16:28] LABS: Troponin(5th) Baseline 15 ng/L (0-15)
[2025-05-12 16:38] LABS: Alanine Aminotransferase 9 U/L (0-41); Albumin Level 3.6 g/dL (3.5-5.2); Alkaline Phosphatase 31 U/L (40-130); Anion Gap 16.8 (5-19); Aspartate Amino Transferase 14 U/L (0-40); Blood Urea Nitrogen 10 mg/dL (8-23); Calcium 8.6 mg/dL (8.5-10.5); Carbon Dioxide 22 mmol/L (22-29); Chloride 98 mmol/L (98-107); Creatinine Clr Calc Pharmacy 43.3741; Globulin 1.8 g/dL (1.3-4.6); Glucose 89 mg/dL (65-115); NT Pro B Type Natriuretic Pept 136 pg/mL (0-125); Osmolality Calculated 275 mOsm/kg (285-295); Potassium 3.8 mmol/L (3.5-5.1); Sodium 133 mmol/L (136-145); Thyroid Stimulating Hormone 1.57 uIU/mL (0.27-4.20); Total Protein 5.4 g/dL (6.6-8.7)
--- NOTE | 2025-05-12 17:44 | ECG_ITS ---
[facility] Test Date: 2025-05-12 Pat Name: Kvng Soto Department: Room: Gender: Male [place]: : 1955 Requested By: Jackie Santos Order Number: [id number] Polina MD: FATUMA SCHNEIDER Measurements Intervals [place] Rate: 59 P: 24 RI: 125 QRS: 30 QRSD: 93 T: 38 QT: 418 QTc: 416 Interpretive Statements SINUS BRADYCARDIA Compared to ECG 05/12/2025 15:44:39 Sinus rhythm no longer present Electronically Signed On 05-15-2025 16:13:05 CDT by FATUMA SCHNEIDER [email or web address]
--- NOTE | 2025-05-12 18:24 | PC.NURSE ---
PT had 2L LR infused via IV from EMS.
[2025-05-12 19:03] LABS: Troponin 5 2HR 58.59 ng/L (0-15)
[2025-05-12 19:05] LABS: Troponin 5 2HR Delta 43.59 ABS# (0-10)
--- NOTE | 2025-05-12 19:44 | PC.NURSE ---
pt states he is going home. Dr. Salazar notified. Dr. Salazar in room discussing pt's need for hospitalization. Pt continues to states I'm fine and I'm going home, I'm not staying. Pt AMA form signed and went over with pt, pt voiced understanding. Pt IVs removed with catheter intact. Pt ambulated out with steady gait.
== END 2025-05-12 19:50 | disposition left against medical advice (07) ==
PROVIDERS: Emergency Provider Emergency Medicine; PCP Nurse Practitioner Family
DX: R55 Syncope and collapse (principal); I21.4 Non-ST elevation (NSTEMI) myocardial infarction; R00.1 Bradycardia, unspecified; Z79.84 Long term (current) use of oral hypoglycemic drugs; F17.210 Nicotine dependence, cigarettes, uncomplicated
CPT/HCPCS: 36415; 71045; 80053; 83880; 84443; 84484; 85025; 93005; 96360; 99285; J7030

== ENCOUNTER 2025-08-17 12:41 | Outpatient (CLI) | payer MEDICARE, SELFPAY ==
--- NOTE | 2025-08-17 12:51 | USR_ITS ---
PROCEDURE INFORMATION: Exam: US Retroperitoneal, Complete, Kidneys, Aorta, IVC. Exam date and time: 08/17/2025 12:55 PM Age: 70 years old Clinical indication: Other: Gross hematuria; Additional info: Gross hematuria/elevated psa TECHNIQUE: Imaging protocol: Real-time ultrasound of the retroperitoneum with image documentation. Complete exam focused on the bilateral kidneys, aorta, and inferior vena cava. COMPARISON: No relevant prior studies available. FINDINGS: Right kidney: Right kidney measured at 9.2 x 5.2 x 5.4 cm, with right renal volume 134.15 mL. Right renal parenchymal thickness measured at 1.0 cm. No dilated renal collecting system and no perirenal fluid demonstrated of right kidney. Left kidney: Left kidney measured at 10.0 x 5.0 x 5.2 cm, with left renal volume 134.93 mL. Left renal parenchymal thickness measured at 1.0 cm. No dilated renal collecting system and no perirenal fluid demonstrated of left kidney. Aorta: Visualized portions abdominal aorta unremarkable. Urinary bladder: Urinary bladder appears partly filled. Prevoid urinary bladder measures to contain volume of about 126 mL. Evidence of wall thickening, possible mild trabeculation and/or lack of distension urinary bladder. Postvoid urinary bladder measured to contain volume of about 40 mL fluid/urine. Prostate: Prostate measured 4.3 x 3.8 x 3.8 cm. US/US renal BI w/PV bladder [id number] IMPRESSION: Urinary bladder appears partly filled. Prevoid urinary bladder measures to contain volume of about 126 mL. Evidence of wall thickening, possible mild trabeculation and/or lack of distension urinary bladder. Postvoid urinary bladder measured to contain volume of about 40 mL fluid/urine.
== END 2025-08-17 12:42 | disposition home or self-care (01) ==
PROVIDERS: PCP Nurse Practitioner Family; Visit Provider Family Medicine
DX: R31.0 Gross hematuria (principal); R97.20 Elevated prostate specific antigen [PSA]
CPT/HCPCS: 76770; 76857